=== PATIENT | female | born 1985 ===

== ENCOUNTER 2017-12-09 12:38 | Inpatient (IN) ==
[2017-12-09 14:08] LABS: Basophils % 0.1 % (0.0-0.8); Eosinophils % 0.1 % (0.00-10.9); Hematocrit 30.9 VOL% (35.7-47.0); Hemoglobin 9.9 GM/DL (12.0-16.0); Immature Granulocytes % 0.8 %; Immature Granulocytes Absolute 0.08 #; Lymphocytes # 1.3 10*3/uL (1.4-4.0); Lymphocytes % 12.2 % (21.3-54.2); Mean Corpuscular Hemoglobin 24 PG (27-34); Mean Corpuscular Volume 76.1 FL (87-102); Mean Platelet Volume 9.3 FL (9.6-12.0); Monocytes # 0.6 10*3/uL (0.11-0.8); Monocytes % 5.2 % (1.7-12.7); Neutrophils # 8.7 10*3/uL (1.4-7.4); Neutrophils % 81.6 % (38.7-73.9); Platelet Count 309 T/CUMM (130-400); Red Blood Count 4.06 MC/CUMM (3.8-5.5); Red Cell Distribution Width 15.7 % (9.3-17.3); White Blood Count 10.6 T/CUMM (4-12)
[2017-12-09 14:31] LABS: Alanine Aminotransferase 11 U/L (13-56); Albumin 2.1 G/DL (3.4-5.0); Alkaline Phosphatase 165 U/L (45-117); Aspartate Amino Transferase 12 U/L (0-37); Bilirubin,Total < 0.39 MG/DL (0.2-1.0); Blood Urea Nitrogen 5 MG/DL (7-18); Calcium 8.3 MG/DL (8.5-10.1); Glucose 77 MG/DL (74-106); Osmolality,Calculated 272.5 MOS/KG (273-304); Potassium 3.7 MMOL/L (3.5-5.1); Sodium 139 MMOL/L (136-145); Total Protein 6.6 G/DL (6.4-8.3); Uric Acid 4.2 MG/DL (2.6-6.0)
[2017-12-09] MEDS ORDERED: LACTATED RINGERS 1,000 ML IV SCH (16:30)
[2017-12-09] MEDS ORDERED: LABETALOL 200 MG TABLET PO ONE (16:30)
[2017-12-09 16:31] LABS: INR 0.9; PT Patient Result 9.4 SECS; Partial Thromboplastin Time 29.6 SECS (0-40)
[2017-12-10] MEDS ORDERED: ACETAMINOPHEN 500 MG TABLET PO ONE (04:30)
[2017-12-10] MEDS ORDERED: SODIUM CHLORIDE 0.9% 100 ML IV ONE (07:45)
[2017-12-10] MEDS ORDERED: CITRIC ACID/SODIUM CITRATE 30 ML UDCUP PO ONE (08:00)
[2017-12-10] MEDS ORDERED: LABETALOL 100 MG TABLET PO SCH (08:00)
[2017-12-10] MEDS ORDERED: FAMOTIDINE 20 MG/2 ML VIAL IV ONE (08:00)
[2017-12-10] MEDS ORDERED: ceFAZolin 3,000 MG in SYRINGE 1 EACH IV ONE (08:00)
[2017-12-10] MEDS ORDERED: OXYTOCIN/LR 30 UNIT/1,000 ML BAG IV ONE (08:00)
[2017-12-10] MEDS ORDERED: OXYTOCIN 10 UNIT/ML VIAL IM ONE (08:00)
[2017-12-10] MEDS ORDERED: ACETAMINOPHEN 325 MG TABLET PO PRN (09:51)
[2017-12-10] MEDS ORDERED: ONDANSETRON 4 MG/2 ML VIAL IV PRN (09:51)
[2017-12-10] MEDS ORDERED: OXYTOCIN/LR 20 UNIT/1,000 ML BAG IV ONE (09:51)
[2017-12-10] MEDS ORDERED: RHO(D) IMMUNE GLOBULIN 300 MCG SYRINGE IM ONE (09:51)
[2017-12-10 10:00] LABS: Cord Arterial Blood HCO3 18.4 MMOL/L; Cord Venous Blood HCO3 22.3 MMOL/L; Cord Venous Blood PCO2 44.8 MMHG; Cord Venous Blood PO2 38.9 MMHG
[2017-12-10] MEDS ORDERED: ceFAZolin 1,000 MG in SYRINGE 1 EACH IV SCH (10:00)
[2017-12-10] MEDS ORDERED: BUPIVACAINE SPINAL 0.75% 2 ML AMP SPINAL ONE (10:07)
[2017-12-10] MEDS ORDERED: ONDANSETRON 4 MG/2 ML VIAL ONE (10:08)
[2017-12-10] MEDS ORDERED: MORPHINE 10 MG/10 ML VIAL ONE (10:08)
[2017-12-10] MEDS ORDERED: fentaNYL 100 MCG/2 ML VIAL ONE (10:08)
[2017-12-10] MEDS ORDERED: MIDAZOLAM 2 MG/2 ML VIAL ONE (10:08)
[2017-12-10] MEDS ORDERED: KETAMINE 500 MG/10 ML VIAL ONE (10:10)
[2017-12-10 10:48] LABS: Apearance,Urine CLEAR (Clear); Bacteria,Urine Occasional /HPF (Few); Bilirubin,Urine Negative (Negative); Blood, Urine Negative (Negative); Glucose,Urine (UA) Negative (Negative); Ketones,Urine 5 mg/dL (Negative); Mucus,Urine Moderate /LPF (Occasional); Nitrite,Urine Negative (Negative); Protein,Urine >=500 MG/DL; RBC,Urine 2 /HPF (0-4); Squamous Epithelial Cell,Urine Occasional /HPF (0-10); Urine Color Amber (Yellow); WBC,Urine 2 /HPF (0-6)
[2017-12-10] MEDS ORDERED: MEPERIDINE 50 MG/1 ML VIAL IV PRN (12:12)
[2017-12-10 17:00] LABS: Basophils % 0.1 % (0.0-0.8); Eosinophils % 0.1 % (0.00-10.9); Hematocrit 26.2 VOL% (35.7-47.0); Hemoglobin 8.3 GM/DL (12.0-16.0); Immature Granulocytes % 0.6 %; Immature Granulocytes Absolute 0.09 #; Lymphocytes # 1.8 10*3/uL (1.4-4.0); Lymphocytes % 10.8 % (21.3-54.2); Mean Corpuscular HGB Conc 31.7 GM/DL (32-36); Mean Corpuscular Hemoglobin 25 PG (27-34); Mean Corpuscular Volume 77.5 FL (87-102); Mean Platelet Volume 9.3 FL (9.6-12.0); Monocytes % 6.4 % (1.7-12.7); Neutrophils # 13.2 10*3/uL (1.4-7.4); Platelet Count 318 T/CUMM (130-400); Red Blood Count 3.38 MC/CUMM (3.8-5.5); White Blood Count 16.2 T/CUMM (4-12)
[2017-12-10] MEDS: ceFAZolin 1,000 MG in SYRINGE 1 EACH IV SCH (17:08)
[2017-12-10] MEDS: LACTATED RINGERS 1,000 ML IV SCH (18:16)
[2017-12-10] MEDS: LABETALOL 100 MG TABLET PO SCH (20:55)
[2017-12-10] MEDS: IBUPROFEN 800 MG TABLET PO PRN (20:57)
[2017-12-10] MEDS: DOCUSATE SODIUM 100 MG CAPSULE PO SCH (20:59)
[2017-12-11] MEDS: ceFAZolin 1,000 MG in SYRINGE 1 EACH IV SCH (00:45)
[2017-12-11 08:03] LABS: Basophils % 0.1 % (0.0-0.8); Eosinophils % 0.2 % (0.00-10.9); Hematocrit 23.8 VOL% (35.7-47.0); Hemoglobin 7.6 GM/DL (12.0-16.0); Immature Granulocytes % 0.8 %; Immature Granulocytes Absolute 0.09 #; Lymphocytes # 1.4 10*3/uL (1.4-4.0); Lymphocytes % 12.1 % (21.3-54.2); Mean Corpuscular HGB Conc 31.9 GM/DL (32-36); Mean Corpuscular Hemoglobin 25 PG (27-34); Mean Corpuscular Volume 79.3 FL (87-102); Mean Platelet Volume 9.4 FL (9.6-12.0); Monocytes # 0.7 10*3/uL (0.11-0.8); Monocytes % 6.3 % (1.7-12.7); Neutrophils # 9.2 10*3/uL (1.4-7.4); Neutrophils % 80.5 % (38.7-73.9); Platelet Count 293 T/CUMM (130-400); Red Cell Distribution Width 16.2 % (9.3-17.3); White Blood Count 11.4 T/CUMM (4-12)
[2017-12-11] MEDS: LABETALOL 100 MG TABLET PO SCH (08:39)
[2017-12-11] MEDS: MAGNESIUM HYDROXIDE SUSP 30 ML UDCUP PO PRN ×2 (08:40→21:57)
[2017-12-11] MEDS: IBUPROFEN 800 MG TABLET PO PRN ×2 (08:40→16:05)
[2017-12-11] MEDS: SIMETHICONE CHEW 80 MG TABLET PO PRN ×2 (08:40→21:57)
[2017-12-11] MEDS: MULTIVITAMIN (PRENATAL) TABLET PO SCH (08:40)
[2017-12-11] MEDS: FERROUS SULFATE 325 MG TABLET PO SCH ×2 (08:40→21:57)
[2017-12-11] MEDS: DOCUSATE SODIUM 100 MG CAPSULE PO SCH ×2 (08:40→21:57)
[2017-12-11] MEDS: METOCLOPRAMIDE 10 MG/2 ML VIAL IV SCH ×3 (08:41→23:34)
[2017-12-11] MEDS: LACTATED RINGERS 1,000 ML IV SCH ×3 (09:07→15:52)
[2017-12-11] MEDS ORDERED: SODIUM CHLORIDE 0.9% 1,000 ML IV PRN (13:51)
[2017-12-11] MEDS ORDERED: FUROSEMIDE 40 MG/4 ML VIAL IV ONE (17:39)
[2017-12-12 05:22] LABS: Hematocrit 27.5 VOL% (35.7-47.0); Hemoglobin 8.9 GM/DL (12.0-16.0)
[2017-12-12] MEDS: METOCLOPRAMIDE 10 MG/2 ML VIAL IV SCH ×2 (09:07→16:08)
[2017-12-12] MEDS: DOCUSATE SODIUM 100 MG CAPSULE PO SCH ×2 (09:09→20:20)
[2017-12-12] MEDS: FERROUS SULFATE 325 MG TABLET PO SCH ×2 (09:09→20:20)
[2017-12-12] MEDS: MULTIVITAMIN (PRENATAL) TABLET PO SCH (09:09)
[2017-12-12] MEDS: MAGNESIUM HYDROXIDE SUSP 30 ML UDCUP PO PRN (09:10)
[2017-12-12] MEDS: IBUPROFEN 800 MG TABLET PO PRN (10:41)
[2017-12-12] MEDS: SIMETHICONE CHEW 80 MG TABLET PO PRN (20:20)
[2017-12-13] MEDS: METOCLOPRAMIDE 10 MG/2 ML VIAL IV SCH ×2 (05:44→10:08)
[2017-12-13] MEDS: DOCUSATE SODIUM 100 MG CAPSULE PO SCH (10:07)
[2017-12-13] MEDS: MULTIVITAMIN (PRENATAL) TABLET PO SCH (10:07)
[2017-12-13] MEDS: FERROUS SULFATE 325 MG TABLET PO SCH (10:08)
[2017-12-13 11:50] VITALS: BP 141/91
== END 2017-12-13 20:30 | disposition home or self-care (01) | DRG 766 ==
LOC: N.LDOUT 12:38 → N.LD 12:44 → N.OB 12-10 13:44
PROVIDERS: ADMIT Obstetrics & Gynecology; ATTEND Obstetrics & Gynecology

== ENCOUNTER 2022-05-31 16:08 | Inpatient (IN) ==
[2022-05-31] MEDS ORDERED: SODIUM CHLORIDE 0.9% 1,000 ML IV STA (16:46)
[2022-05-31 17:07] LABS: Basophils # 0.1 10*3/uL (0.0-0.2); Basophils % 0.4 % (0.0-0.8); Eosinophils % 0.1 % (0.00-10.9); Hematocrit 34.5 VOL% (35.7-47.0); Immature Granulocytes % 2.8 %; Immature Granulocytes Absolute 0.48 #; Lymphocytes # 3.3 10*3/uL (1.4-4.0); Lymphocytes % 19.1 % (21.3-54.2); Mean Corpuscular HGB Conc 31.9 GM/DL (32-36); Mean Corpuscular Volume 79.5 FL (87-102); Mean Platelet Volume 9.6 FL (9.6-12.0); Monocytes # 1.8 10*3/uL (0.11-0.8); Monocytes % 10.3 % (1.7-12.7); Neutrophils % 67.3 % (38.7-73.9); Platelet Count 373 T/CUMM (130-400); Red Blood Count 4.34 MC/CUMM (3.8-5.5); Red Cell Distribution Width 15.1 % (9.3-17.3); White Blood Count 17.03 T/CUMM (4-12)
[2022-05-31 17:25] LABS: Albumin 2.4 G/DL (3.4-5.0); Calcium 8.4 MG/DL (8.5-10.1); Potassium 3.1 MMOL/L (3.5-5.1); Total Protein 7.8 G/DL (6.4-8.2)
[2022-05-31] MEDS ORDERED: hydrALAZINE 20 MG/1 ML VIAL IV PRN (17:29)
[2022-05-31] MEDS ORDERED: DOCUSATE SODIUM 100 MG CAPSULE PO PRN (17:29)
[2022-05-31] MEDS ORDERED: SODIUM CHLORIDE 0.9% 650 ML IV STA (17:29)
[2022-05-31] MEDS ORDERED: ONDANSETRON 4 MG/2 ML VIAL IV PRN (17:29)
[2022-05-31] MEDS ORDERED: cefTRIAXone 2,000 MG in SODIUM CHLORIDE 0.9% 100 ML IV SCH ×2 (17:30→18:00)
[2022-05-31] MEDS ORDERED: cefTRIAXone 1,000 MG in SODIUM CHLORIDE 0.9% 100 ML IV ONE (17:34)
[2022-05-31] MEDS ORDERED: POTASSIUM CHLORIDE 20 MEQ TABLET PO STA (17:51)
[2022-05-31 18:05] LABS: Thyroid Stimulating Hormone 1.02 uIU/ml (0.358-3.74)
[2022-05-31] MEDS: LACTATED RINGERS 1,000 ML IV SCH (18:07)
[2022-05-31] MEDS: ENOXAPARIN 40 MG/0.4 ML SYRINGE SUBCUT SCH (22:16)
[2022-06-01] MEDS: LACTATED RINGERS 1,000 ML IV SCH ×4 (04:09→23:39)
[2022-06-01 05:21] LABS: Bacteria,Urine Occasional /HPF (Few); Mucus,Urine Occasional /LPF (Occasional); RBC,Urine 9 /HPF (0-4); Squamous Epithelial Cell,Urine Occasional /HPF (0-10); Trichomonas,Urine Occasional /HPF (<1)
[2022-06-01 05:22] LABS: Bilirubin,Urine Small mg/dL (Negative); Blood, Urine Moderate mg/dL (Negative); Glucose,Urine (UA) Negative (Negative); Ketones,Urine 40 mg/dL (Negative); Nitrite,Urine Negative (Negative); Protein,Urine 30 mg/dL (Negative); Urine Appearance Clear (Clear); Urine Color Yellow (Yellow); Urine Specific Gravity 1.015 (1.001-1.035)
[2022-06-01 05:23] LABS: Urine Urobilinogen >= 8.0 eU/dL (<2.0)
[2022-06-01 06:44] LABS: Basophils # 0.1 10*3/uL (0.0-0.2); Basophils % 0.3 % (0.0-0.8); Eosinophils % 0.2 % (0.00-10.9); Hematocrit 31.8 VOL% (35.7-47.0); Immature Granulocytes % 3.6 %; Immature Granulocytes Absolute 0.53 #; Lymphocytes # 2.9 10*3/uL (1.4-4.0); Lymphocytes % 19.6 % (21.3-54.2); Mean Corpuscular HGB Conc 31.4 GM/DL (32-36); Mean Corpuscular Volume 80.3 FL (87-102); Mean Platelet Volume 9.7 FL (9.6-12.0); Monocytes # 1.3 10*3/uL (0.11-0.8); Neutrophils % 67.3 % (38.7-73.9); Platelet Count 341 T/CUMM (130-400); Red Blood Count 3.96 MC/CUMM (3.8-5.5); Red Cell Distribution Width 15.2 % (9.3-17.3); White Blood Count 14.81 T/CUMM (4-12)
[2022-06-01 07:02] LABS: Calcium 8.1 MG/DL (8.5-10.1); Potassium 3.5 MMOL/L (3.5-5.1)
[2022-06-01 07:07] LABS: Band Neutrophils 2 % (0-10); Hypochromia Slight; Lymphocytes 14 % (20-55); Microcytosis Slight; Platelet Estimate Adequate; Total Cells Counted 100
[2022-06-01] MEDS: PANTOPRAZOLE 40 MG TABLET PO SCH (10:03)
[2022-06-01] MEDS: cefTRIAXone 1,000 MG in SODIUM CHLORIDE 0.9% 100 ML IV SCH (10:03)
[2022-06-01] MEDS: ENOXAPARIN 40 MG/0.4 ML SYRINGE SUBCUT SCH (21:38)
[2022-06-02 06:21] LABS: Risk Ratio 8.07; VLDL Cholesterol 35.4 MG/DL
[2022-06-02 08:33] LABS: Calcium 8.2 MG/DL (8.5-10.1); Osmolality,Calculated 271.7 MOS/KG (273-304); Potassium 3.8 MMOL/L (3.5-5.1)
[2022-06-02 08:58] LABS: Basophils # 0.1 10*3/uL (0.0-0.2); Basophils % 0.4 % (0.0-0.8); Eosinophils # 0.1 10*3/uL (0.0-0.87); Eosinophils % 0.6 % (0.00-10.9); Hematocrit 34.4 VOL% (35.7-47.0); Hemoglobin 10.8 GM/DL (12.0-16.0); Immature Granulocytes % 6.3 %; Immature Granulocytes Absolute 0.85 #; Lymphocytes # 2.4 10*3/uL (1.4-4.0); Lymphocytes % 17.8 % (21.3-54.2); Mean Corpuscular HGB Conc 31.4 GM/DL (32-36); Mean Corpuscular Volume 80.9 FL (87-102); Mean Platelet Volume 9.7 FL (9.6-12.0); Monocytes # 0.8 10*3/uL (0.11-0.8); Monocytes % 5.9 % (1.7-12.7); Platelet Count 433 T/CUMM (130-400); Red Blood Count 4.25 MC/CUMM (3.8-5.5); Red Cell Distribution Width 15.5 % (9.3-17.3); White Blood Count 13.58 T/CUMM (4-12)
[2022-06-02 09:23] LABS: Band Neutrophils 2 % (0-10); Hypochromia Slight; Lymphocytes 18 % (20-55); Total Cells Counted 100
[2022-06-02 09:24] LABS: Microcytosis Slight; Platelet Estimate Increased
[2022-06-02] MEDS: LACTATED RINGERS 1,000 ML IV SCH (09:27)
[2022-06-02] MEDS: cefTRIAXone 1,000 MG in SODIUM CHLORIDE 0.9% 100 ML IV SCH (09:28)
[2022-06-02] MEDS: PANTOPRAZOLE 40 MG TABLET PO SCH (09:28)
[2022-06-02] MEDS: ENOXAPARIN 40 MG/0.4 ML SYRINGE SUBCUT SCH (20:47)
[2022-06-03 05:13] LABS: Basophils # 0.1 10*3/uL (0.0-0.2); Basophils % 0.5 % (0.0-0.8); Eosinophils # 0.1 10*3/uL (0.0-0.87); Eosinophils % 0.9 % (0.00-10.9); Hematocrit 31.1 VOL% (35.7-47.0); Hemoglobin 9.6 GM/DL (12.0-16.0); Immature Granulocytes % 7.3 %; Immature Granulocytes Absolute 0.77 #; Lymphocytes # 2.3 10*3/uL (1.4-4.0); Lymphocytes % 22.1 % (21.3-54.2); Mean Corpuscular HGB Conc 30.9 GM/DL (32-36); Mean Corpuscular Volume 81.2 FL (87-102); Mean Platelet Volume 9.5 FL (9.6-12.0); Monocytes # 0.6 10*3/uL (0.11-0.8); Monocytes % 5.9 % (1.7-12.7); Neutrophils % 63.3 % (38.7-73.9); Platelet Count 460 T/CUMM (130-400); Red Blood Count 3.83 MC/CUMM (3.8-5.5); Red Cell Distribution Width 15.4 % (9.3-17.3); White Blood Count 10.58 T/CUMM (4-12)
[2022-06-03 05:33] LABS: Band Neutrophils 2 % (0-10); Eosinophils 3 % (0-10); Hypochromia Slight; Lymphocytes 20 % (20-55); Microcytosis Slight; Platelet Estimate Adequate; Total Cells Counted 100
[2022-06-03 06:34] LABS: Calcium 8.1 MG/DL (8.5-10.1); Osmolality,Calculated 275.4 MOS/KG (273-304); Potassium 3.5 MMOL/L (3.5-5.1)
[2022-06-03] MEDS ORDERED: metFORMIN 500 MG TABLET PO SCH (08:00)
[2022-06-03 08:40] VITALS: BP 146/78
[2022-06-03] MEDS: PANTOPRAZOLE 40 MG TABLET PO SCH (10:14)
[2022-06-03] MEDS: cefTRIAXone 1,000 MG in SODIUM CHLORIDE 0.9% 100 ML IV SCH (10:14)
== END 2022-06-03 12:54 | disposition home or self-care (01) | DRG 690 ==
LOC: N.ED 16:08 → SUATTDRO 17:29 → N.EDINP 17:29 → N.2E 20:08
PROVIDERS: ADMIT Internal Medicine; ATTEND Internal Medicine